=== PATIENT | female | born 1950 | race Caucasian/White ===

== ENCOUNTER 2017-09-30 22:04 | Emergency (ER) | payer MEDICARE, MEDICAID ==
[~2017-09-30 22:04] MED LIST: Adenosine 6 MG/2 ML SDV IVPUSH ONE
[2017-09-30] MEDS ORDERED: Sodium Chloride 0.9% 1,000 ML IV ONE (22:20)
[2017-09-30 22:23] VITALS: BP 116/66
[2017-09-30] MEDS ORDERED: Aspirin 81 MG Tab.Chew PO ONE (22:38)
[2017-09-30] MEDS ORDERED: Metoprolol Tartrate 5 MG/5 ML SDV IVPUSH ONE (23:09)
[2017-09-30] MEDS ORDERED: Heparin Sodium/D5W 25,000 UNITS/500 ML BAG IV ONE (23:46)
[2017-09-30] MEDS ORDERED: Heparin Sodium 5,000 Units/ML Vial IVPUSH ONE (23:46)
--- NOTE | 2017-10-02 02:31 | EDM.PDOC ---
ED HPI GENERAL MEDICAL PROBLEM - General Chief Complaint: Cardiovascular Problem Stated Complaint: CAME BY AMBULANCE Time Seen by Provider: 09/30/17 22:15 Source of Information: Reports: Patient, EMS History Limitations: Reports: No Limitations - History of Present Illness INITIAL COMMENTS - FREE TEXT/NARRATIVE: ED via [facility] with initial report of syncope. Patient reported feeling warm and lightheaded then woke up on floor. Noted similar episode day prior after lifting bag of soil with SOB. C/O feeling weak at present, SOB with minimal movement. EMS note SVT on monitor on arrival. Unable to access IV Onset: Today - Related Data Allergies Allergy/AdvReac Type Severity Reaction Status Date / Time adhesive tape Allergy Itching Verified 09/30/17 23:02 alendronate sodium Allergy Difficulty Verified 09/30/17 23:03 [From Fosamax] Swallowing bacitracin Allergy Itching Verified 09/30/17 23:02 mupirocin [From Bactroban] Allergy Rash Verified 09/30/17 23:02 mupirocin calcium Allergy Rash Verified 09/30/17 23:02 [From Bactroban] Home Meds: Home Meds Glucosamine/Chondroitin Sulf A [Glucosamine Chondroitin Cap] 1 tab PO BID [History] Hydroxychloroquine [Plaquenil] 200 mg PO BID 12/05/15 [History] Multivitamin [Daily Multiple Vitamin] 1 tab PO DAILY 12/05/15 [History] Omeprazole [Prilosec] 20 mg PO DAILY 12/05/15 [History] traMADol HCl [Ultram] 100 mg PO TID 12/05/15 [History] Calcium Carbonate/Vitamin D3 [Calcium Carbonate/Vitamin D 1250 MG-200 Unit] 1 tab PO BID 04/05/16 [History] Ferrous Sulfate 325 mg PO DAILY 04/05/16 [History] Furosemide [Lasix] 40 mg PO DAILY 04/05/16 [History] Spironolactone [Aldactone] 25 mg PO DAILY 04/05/16 [History] Fosinopril [Monopril] 10 mg PO DAILY #14 tablet 04/30/16 [Rx] Metoprolol Tartrate [Lopressor] 50 mg PO Q12HR 09/30/17 [History] Past Medical History HEENT History: Reports: None Cardiovascular History: Reports: Heart Murmur, Hypertension, Other (See Below) Other Cardiovascular History: rapid heart rate Respiratory History: Reports: Asthma Gastrointestinal History: Reports: GERD Genitourinary History: Reports: None PRODUCT SUPPORT ENGINEER History: Reports: None Musculoskeletal History: Reports: Osteoarthritis, RA Neurological History: Reports: None Psychiatric History: Reports: None Endocrine/Metabolic History: Reports: None Hematologic History: Reports: Anemia Immunologic History: Reports: None Oncologic (Cancer) History: Reports: None Dermatologic History: Reports: Psoriasis - Infectious Disease History Infectious Disease History: Reports: Chicken Pox, Measles, Rubella Other Infectious Disease History: pt unsure of all childhood illnesses. - Past Surgical History Head Surgeries/Procedures: Reports: None Respiratory Surgical History: Reports: None GI Surgical History: Reports: Appendectomy, Colonoscopy Female Surgical History: Reports: Tubal Ligation Musculoskeletal Surgical History: Reports: None Social & Family History - Family History Family Medical History: Unobtainable - Tobacco Use Smoking Status *Q: Never Smoker Second Hand Smoke Exposure: No - Recreational Drug Use Recreational Drug Use: No ED ROS GENERAL - Review of Systems Review Of Systems: See Below Constitutional: Reports: Fatigue HEENT: Reports: No Symptoms Respiratory: Reports: Shortness of Breath Cardiovascular: Reports: No Symptoms. Denies: Chest Pain GI/Abdominal: Reports: No Symptoms Musculoskeletal: Reports: Joint Pain (right hip with palpation, no change from chronic pain) Neurological: Reports: No Symptoms, Syncope. Denies: Headache, Trouble Speaking Psychiatric: Reports: No Symptoms Immunologic: Reports: No Symptoms ED EXAM, GENERAL - Physical Exam Exam: See Below Exam Limited By: No Limitations General Appearance: Alert, Mild Distress Eye Exam: Bilateral Eye: PERRL Ears: Normal External Exam, Normal TMs Nose: Normal Inspection Throat/Mouth: Normal Inspection, Normal Voice Head: Atraumatic, Normocephalic Neck: Normal Inspection, Non-Tender, Full Range of Motion. No: Lymphadenopathy (L), Lymphadenopathy (R) Respiratory/Chest: Decreased Breath Sounds Cardiovascular: Tachycardia, Other. No: Normal Peripheral Pulses GI/Abdominal: Normal Bowel Sounds, Soft Back Exam: Normal Inspection Extremities: Normal Inspection, Other (tnder right hip with palpation, patient reports, no change from chronic pain) Neurological: Alert, Oriented, Normal Cognition, Normal Reflexes, No Motor/ Sensory Deficits Psychiatric: Normal Affect Skin Exam: Warm, Dry, Cool, Pallor Course - Vital Signs Last Recorded V/S: Last Vital Signs Temp 97.2 F 09/30/17 22:15 Pulse 115 H 09/30/17 22:15 Resp 18 09/30/17 22:15 BP 116/66 09/30/17 22:15 Pulse Ox 100 09/30/17 22:15 - Orders/Labs/Meds Labs: Laboratory Tests 09/30/17 09/30/17 09/30/17 Range/Units 22:10 22:10 22:10 WBC 14.8 H (5.0-10.0) 10^3/uL RBC 4.06 L (4.2-5.4) 10^6/uL Hgb 12.5 D (12.0-16.0) g/dL Hct 40.0 (37.0-47.0) % MCV 98.5 D (80-100) fL MCH 30.8 (27.0-34.0) pg MCHC 31.3 L (33.0-35.0) g/dL Plt Count 312 D (150-450) 10^3/uL Neut % (Auto) 85.4 H (42.2-75.2) % Lymph % (Auto) 7.2 L (20.5-50.1) % [place] % (Auto) 5.9 (2-8) % Eos % (Auto) 1.2 (1.0-3.0) % Baso % (Auto) 0.3 (0.0-1.0) % D-Dimer, Quantitative (0-400) ng/mL Sodium 137 (135-145) mmol/L Potassium 4.3 (3.6-5.0) mmol/L Chloride 100 L (101-111) mmol/L Carbon Dioxide 29.0 (21.0-31.0) mmol/L Anion Gap 12.3 BUN 24 H (7-18) mg/dL Creatinine 1.3 (0.6-1.3) mg/dL Est Cr Clr Drug Dosing 41.40 mL/min Estimated GFR (MDRD) 41 BUN/Creatinine Ratio 18.46 Glucose 184 H (74-105) mg/dL Lactic Acid (0.5-2.2) mmol/L Calcium 9.2 (8.4-10.2) mg/dl Total Bilirubin 0.3 (0.2-1.0) mg/dL AST 53 H (10-42) IU/L ALT 37 (10-60) IU/L Alkaline Phosphatase 90 (42-121) IU/L CK-MB (CK-2) 2.00 (0.4-4.7) ng/mL Troponin I 0.03 H* (0.00-0.02) ng/ml B-Natriuretic Peptide (0-100) pg/ml Total Protein 8.0 (6.7-8.2) g/dl Albumin 3.6 (3.2-5.5) g/dl Globulin 4.4 Albumin/Globulin Ratio 0.82 Amylase 40 (28-100) U/L Lipase 15 L (22-51) U/L Urine Color (YELLOW) Urine Appearance (CLEAR) Urine pH (5.0-9.0) Ur Specific [place] (1.005-1.030) Urine Protein (NEGATIVE) Urine Glucose (UA) (NEGATIVE) Urine Ketones (NEGATIVE) mg/dL Urine Occult Blood (NEGATIVE) Urine Nitrite (NEGATIVE) Urine Bilirubin (NEGATIVE) Urine Urobilinogen (0.2-1.0) mg/dL Ur Leukocyte Esterase (NEGATIVE) Urine RBC /HPF Urine WBC (0-5/HPF) /HPF Ur Epithelial Cells /HPF Amorphous Sediment (0/HPF) /HPF Urine Bacteria (0-FEW/HPF) /HPF 09/30/17 09/30/17 09/30/17 Range/Units 22:10 22:10 23:05 WBC (5.0-10.0) 10^3/uL RBC (4.2-5.4) 10^6/uL Hgb (12.0-16.0) g/dL Hct (37.0-47.0) % MCV (80-100) fL MCH (27.0-34.0) pg MCHC (33.0-35.0) g/dL Plt Count (150-450) 10^3/uL Neut % (Auto) (42.2-75.2) % Lymph % (Auto) (20.5-50.1) % [place] % (Auto) (2-8) % Eos % (Auto) (1.0-3.0) % Baso % (Auto) (0.0-1.0) % D-Dimer, Quantitative 1710 H (0-400) ng/mL Sodium (135-145) mmol/L Potassium (3.6-5.0) mmol/L Chloride (101-111) mmol/L Carbon Dioxide (21.0-31.0) mmol/L Anion Gap BUN (7-18) mg/dL Creatinine (0.6-1.3) mg/dL Est Cr Clr Drug Dosing mL/min Estimated GFR (MDRD) BUN/Creatinine Ratio Glucose (74-105) mg/dL Lactic Acid 1.4 (0.5-2.2) mmol/L Calcium (8.4-10.2) mg/dl Total Bilirubin (0.2-1.0) mg/dL AST (10-42) IU/L ALT (10-60) IU/L Alkaline Phosphatase (42-121) IU/L CK-MB (CK-2) (0.4-4.7) ng/mL Troponin I (0.00-0.02) ng/ml B-Natriuretic Peptide 706 H (0-100) pg/ml Total Protein (6.7-8.2) g/dl Albumin (3.2-5.5) g/dl Globulin Albumin/Globulin Ratio Amylase (28-100) U/L Lipase (22-51) U/L Urine Color (YELLOW) Urine Appearance (CLEAR) Urine pH (5.0-9.0) Ur Specific [place] (1.005-1.030) Urine Protein (NEGATIVE) Urine Glucose (UA) (NEGATIVE) Urine Ketones (NEGATIVE) mg/dL Urine Occult Blood (NEGATIVE) Urine Nitrite (NEGATIVE) Urine Bilirubin (NEGATIVE) Urine Urobilinogen (0.2-1.0) mg/dL Ur Leukocyte Esterase (NEGATIVE) Urine RBC /HPF Urine WBC (0-5/HPF) /HPF Ur Epithelial Cells /HPF Amorphous Sediment (0/HPF) /HPF Urine Bacteria (0-FEW/HPF) /HPF 09/30/17 Range/Units 23:33 WBC (5.0-10.0) 10^3/uL RBC (4.2-5.4) 10^6/uL Hgb (12.0-16.0) g/dL Hct (37.0-47.0) % MCV (80-100) fL MCH (27.0-34.0) pg MCHC (33.0-35.0) g/dL Plt Count (150-450) 10^3/uL Neut % (Auto) (42.2-75.2) % Lymph % (Auto) (20.5-50.1) % [place] % (Auto) (2-8) % Eos % (Auto) (1.0-3.0) % Baso % (Auto) (0.0-1.0) % D-Dimer, Quantitative (0-400) ng/mL Sodium (135-145) mmol/L Potassium (3.6-5.0) mmol/L Chloride (101-111) mmol/L Carbon Dioxide (21.0-31.0) mmol/L Anion Gap BUN (7-18) mg/dL Creatinine (0.6-1.3) mg/dL Est Cr Clr Drug Dosing mL/min Estimated GFR (MDRD) BUN/Creatinine Ratio Glucose (74-105) mg/dL Lactic Acid (0.5-2.2) mmol/L Calcium (8.4-10.2) mg/dl Total Bilirubin (0.2-1.0) mg/dL AST (10-42) IU/L ALT (10-60) IU/L Alkaline Phosphatase (42-121) IU/L CK-MB (CK-2) (0.4-4.7) ng/mL Troponin I (0.00-0.02) ng/ml B-Natriuretic Peptide (0-100) pg/ml Total Protein (6.7-8.2) g/dl Albumin (3.2-5.5) g/dl Globulin Albumin/Globulin Ratio Amylase (28-100) U/L Lipase (22-51) U/L Urine Color Yellow (YELLOW) Urine Appearance Slightly cloudy (CLEAR) Urine pH 7.0 (5.0-9.0) Ur Specific [place] >= 1.030 (1.005-1.030) Urine Protein 30 H (NEGATIVE) Urine Glucose (UA) Negative (NEGATIVE) Urine Ketones Negative (NEGATIVE) mg/dL Urine Occult Blood Negative (NEGATIVE) Urine Nitrite Negative (NEGATIVE) Urine Bilirubin Negative (NEGATIVE) Urine Urobilinogen 0.2 (0.2-1.0) mg/dL Ur Leukocyte Esterase Negative (NEGATIVE) Urine RBC 0-5 /HPF Urine WBC 0-5 (0-5/HPF) /HPF Ur Epithelial Cells Rare /HPF Amorphous Sediment Few (0/HPF) /HPF Urine Bacteria Rare (0-FEW/HPF) /HPF Meds: Medications Discontinued Medications Generic Name Dose Route Start Last Admin Trade Name Suri PRN Reason Stop Dose Admin Adenosine 6 mg 09/30/17 21:55 10/01/17 00:01 Adenocard IVPUSH 09/30/17 21:56 Not Given NOW ONE Aspirin 324 mg 09/30/17 22:38 09/30/17 22:53 Aspirin PO 09/30/17 22:39 324 mg ONETIME ONE Administration Heparin Sodium (Porcine) 5,000 units 09/30/17 23:46 09/30/17 23:59 Heparin Sodium IVPUSH 09/30/17 23:47 5,000 units ONETIME ONE Administration Sodium Chloride 1,000 mls @ 50 mls/hr 09/30/17 22:20 09/30/17 22:33 Normal Saline IV 10/01/17 18:19 50 mls/hr .BOLUS ONE Administration Heparin Sodium/Dextrose 25,000 units in 500 mls @ 0 mls/hr 09/30/17 23:46 00:08 Heparin 25,000 Units In D5w 500 Ml IV 09/30/17 23:47 17.96 units/kg/hr ONETIME ONE 31.3 mls/hr Protocol Administration 18 UNITS/KG/HR Metoprolol Tartrate 2.5 mg 09/30/17 23:09 10/01/17 01:13 Lopressor IVPUSH 09/30/17 23:10 Not Given ONETIME ONE - Re-Assessments/Exams Free Text/Narrative Re-Assessment/Exam: HR 110- 120's at rest, minimal movement increase up to 200. SOB with movment, minimal at rest. Dr. Cantu accepting of patient for further eval and management. Ddimer elevated. Heparin initiated. Metoprolol for rate control Tx via [facility] 10/02/17 03:30 Departure - Departure Time of Disposition: 00:30 Disposition: DC/Tfer to Acute Hospital 02 Reason for Transfer *Q: Other Condition: Undetermined Clinical Impression: Positive D-dimer, SVT (supraventricular tachycardia) Syncope Qualifiers: Syncope type: unspecified Qualified Code(s): R55 - Syncope and collapse Fall in home Qualifiers: Encounter type: initial encounter Qualified Code(s): W19.XXXA - Unspecified fall, initial encounter; Y92.099 - Unspecified place in other non-institutional residence as the place of occurrence of the external cause; Y92.099 - Unspecified place in other non-institutional residence as the place of occurrence of the external cause Rheumatoid arthritis Qualifiers: Rheumatoid arthritis location: unspecified site Rheumatoid factor presence: unspecified presence Qualified Code(s): M06.9 - Rheumatoid arthritis, unspecified Referrals: PCP,None [Primary Care Provider] - Forms: ED Department Discharge
--- NOTE | 2017-10-02 19:00 | EKG ---
09/30/2017 - RIZWANA HERMAN - FINDINGS: I reviewed the EKG and agree with the machine's reading ventricular tachycardia. [facility] /[id number]
== END 2017-10-01 00:32 ==
LOC: DL.ED 22:04
DX: I47.1 Supraventricular tachycardia (principal); R55 Syncope and collapse; M06.9 Rheumatoid arthritis, unspecified; I10 Essential (primary) hypertension; Z88.8 Allergy status to other drugs, medicaments and biological substances; Z79.899 Other long term (current) drug therapy; W19.XXXA Unspecified fall, initial encounter; Y92.099 Unspecified place in other non-institutional residence as the place of occurrence of the external cause; R06.02 Shortness of breath
CPT/HCPCS: 36415; 71010; 72170; 80053; 81001; 82150; 82553; 83605; 83690; 83880; 84484; 85025; 85379; 87040; 93005; 93010; 96361; 96374; 96376; 99285; A9270; J1644; J7030

== ENCOUNTER 2017-11-26 11:43 | Emergency (ER) | payer MEDICARE, MEDICAID ==
[2017-11-26 12:05] VITALS: BP 129/98
--- NOTE | 2017-11-26 12:33 | EDM.PDOC ---
ED HPI GENERAL MEDICAL PROBLEM - General Chief Complaint: Respiratory Problem Stated Complaint: RATTELING IN CHEST Time Seen by Provider: 11/26/17 12:15 Source of Information: Reports: Patient History Limitations: Reports: No Limitations - History of Present Illness INITIAL COMMENTS - FREE TEXT/NARRATIVE: This 67 yo female patient reports to the ED due to noticing a "rattle" in her chest that started last night. The patient reports she has been coughing up some clear fluids intermittently. The patient denies any fevers. The patient reports she was seen in [facility] about 1 month ago for a cardioversion. During her stay in the hospital, the patient reports that she did have a pneumonia which was treated with antibiotics. The patient has not been seen by her primary care facility due to it taking it too long. Onset Date: 11/25/17 Duration: Intermittent Location: Reports: Chest Severity: Mild Improves with: Reports: Other (deep breathing) Associated Symptoms: Reports: No Other Symptoms - Related Data Allergies Allergy/AdvReac Type Severity Reaction Status Date / Time adhesive tape Allergy Itching Verified 09/30/17 23:02 alendronate sodium Allergy Difficulty Verified 09/30/17 23:03 [From Fosamax] Swallowing bacitracin Allergy Itching Verified 09/30/17 23:02 mupirocin [From Bactroban] Allergy Rash Verified 09/30/17 23:02 mupirocin calcium Allergy Rash Verified 09/30/17 23:02 [From Bactroban] Home Meds: Home Meds Glucosamine/Chondroitin Sulf A [Glucosamine Chondroitin Cap] 1 tab PO BID [History] Hydroxychloroquine [Plaquenil] 200 mg PO BID 12/05/15 [History] Multivitamin [Daily Multiple Vitamin] 1 tab PO DAILY 12/05/15 [History] Omeprazole [Prilosec] 20 mg PO DAILY 12/05/15 [History] traMADol HCl [Ultram] 100 mg PO TID 12/05/15 [History] Calcium Carbonate/Vitamin D3 [Calcium Carbonate/Vitamin D 1250 MG-200 Unit] 1 tab PO BID 04/05/16 [History] Ferrous Sulfate 325 mg PO DAILY 04/05/16 [History] Furosemide [Lasix] 40 mg PO DAILY 04/05/16 [History] Spironolactone [Aldactone] 25 mg PO DAILY 04/05/16 [History] Apixaban [Eliquis] 5 mg PO BID 11/26/17 [History] Fosinopril [Monopril] 0.5 mg PO DAILY 11/26/17 [History] Metoprolol Succinate 75 mg PO DAILY 11/26/17 [History] Past Medical History HEENT History: Reports: None Cardiovascular History: Reports: Heart Murmur, Hypertension, Pacemaker Respiratory History: Reports: Asthma Gastrointestinal History: Reports: GERD Genitourinary History: Reports: None NETWORK SYSTEMS ENGINEER History: Reports: None Musculoskeletal History: Reports: Osteoarthritis, RA Neurological History: Reports: None Psychiatric History: Reports: None Endocrine/Metabolic History: Reports: None Hematologic History: Reports: Anemia Immunologic History: Reports: None Oncologic (Cancer) History: Reports: None Dermatologic History: Reports: Psoriasis - Infectious Disease History Infectious Disease History: Reports: Chicken Pox, Measles, Rubella Other Infectious Disease History: pt unsure of all childhood illnesses. - Past Surgical History Head Surgeries/Procedures: Reports: None Respiratory Surgical History: Reports: None GI Surgical History: Reports: Appendectomy, Colonoscopy Musculoskeletal Surgical History: Reports: None Social & Family History - Family History Family Medical History: Unobtainable - Tobacco Use Smoking Status *Q: Never Smoker Second Hand Smoke Exposure: No - Recreational Drug Use Recreational Drug Use: No ED ROS GENERAL - Review of Systems Review Of Systems: ROS reveals no pertinent complaints other than HPI. ED EXAM, GENERAL - Physical Exam Exam: See Below Exam Limited By: No Limitations General Appearance: Alert, WD/WN, Anxious, Mild Distress Eye Exam: Bilateral Eye: EOMI, Normal Inspection, PERRL Ears: Normal External Exam, Normal Canal, Hearing Grossly Normal, Normal TMs Nose: Normal Inspection, Normal Mucosa, No Blood Throat/Mouth: Normal Inspection, Normal Lips, Normal Teeth, Normal Gums, Normal Oropharynx, Normal Voice, No Airway Compromise Head: Atraumatic, Normocephalic Neck: Normal Inspection, Supple, Non-Tender, Full Range of Motion Respiratory/Chest: No Respiratory Distress, Lungs Clear, Normal Breath Sounds, No Accessory Muscle Use, Chest Non-Tender Cardiovascular: Normal Peripheral Pulses, Regular Rate, Rhythm, No Edema, No Gallop, No JVD, No Murmur, No Rub GI/Abdominal: Normal Bowel Sounds, Soft, Non-Tender, No Organomegaly, No Distention, No Abnormal Bruit, No Mass (Female) Exam: Deferred Rectal (Female) Exam: Deferred Back Exam: Normal Inspection, Full Range of Motion, NT Extremities: Normal Inspection, Normal Range of Motion, Non-Tender, Normal Capillary Refill, No Pedal Edema Neurological: Alert, Oriented, CN II-XII Intact, Normal Cognition, Normal Gait, Normal Reflexes, No Motor/Sensory Deficits Psychiatric: Normal Affect, Normal Mood Skin Exam: Warm, Dry, Intact, Normal Color, No Rash Lymphatic: No Adenopathy Course - Vital Signs Last Recorded V/S: Last Vital Signs Temp 37.1 C 11/26/17 12:02 Pulse 71 11/26/17 12:02 Resp 14 11/26/17 12:02 BP 129/98 H 11/26/17 12:02 Pulse Ox 100 11/26/17 12:02 - Orders/Labs/Meds Orders: Active Orders 24 hr Category Date Time Status COMPREHENSIVE METABOLIC PN,CMP [CHEM] Urgent Lab 11/26/17 12:26 Received Labs: Laboratory Tests 11/26/17 Range/Units 12:26 WBC 8.0 (5.0-10.0) 10^3/uL RBC 4.07 L (4.2-5.4) 10^6/uL Hgb 12.4 (12.0-16.0) g/dL Hct 38.5 (37.0-47.0) % MCV 94.6 D (80-100) fL MCH 30.5 (27.0-34.0) pg MCHC 32.2 L (33.0-35.0) g/dL Plt Count 305 (150-450) 10^3/uL Neut % (Auto) 79.6 H (42.2-75.2) % Lymph % (Auto) 11.0 L (20.5-50.1) % [place] % (Auto) 6.9 (2-8) % Eos % (Auto) 2.0 (1.0-3.0) % Baso % (Auto) 0.5 (0.0-1.0) % Departure - Departure Time of Disposition: 12:47 Disposition: Home, Self-Care 01 Condition: Fair Clinical Impression: Viral upper respiratory illness - Discharge Information Instructions: Viral Respiratory Infection, [id number] Forms: ED Department Discharge Care Plan Goals: The patient was advised of the examination, lab and x-ray results during the visit. The patient was encouraged to continue to monitor her symptoms. If the patient has any worsening of her conditions or additional symptoms, the patient should follow-up with her primary care facility or return to the emergency department. - My Orders Last 24 Hours: My Active Orders 11/26/17 12:26 COMPREHENSIVE METABOLIC PN,CMP [CHEM] Urgent - Assessment/Plan Last 24 Hours: My Active Orders 11/26/17 12:26 COMPREHENSIVE METABOLIC PN,CMP [CHEM] Urgent
--- NOTE | 2017-11-26 12:42 | CR ---
Clinical history: 67-year-old female complaining of "rattling" in chest. "Normal" AP chest x-ray repo rted 30 September 2017. Interpretation: Heart size today is normal (new pacemaker with leads intact since 30 September 2017 ex am) and no current signs of alveolar edema or dependent pleural effusion. Compression fractures (old) T12 and L2 vertebral bodies. No new lung mass, hilar lymphadenopathy or focal lobar pneumonia. No atelectasis/collapse. No pneumot horax. CONCLUSION: No acute cardiopulmonary abnormality. Specifically, no signs of heart failure or lobar pn eumonia.
== END 2017-11-26 12:58 | disposition home or self-care (01) ==
LOC: DL.ED 11:43
DX: J06.9 Acute upper respiratory infection, unspecified (principal); I10 Essential (primary) hypertension; Z88.8 Allergy status to other drugs, medicaments and biological substances; Z79.899 Other long term (current) drug therapy
CPT/HCPCS: 36415; 71046; 80053; 85025; 99282; 99284

== ENCOUNTER 2018-11-06 23:50 | Emergency (ER) | payer MEDICARE, MEDICAID ==
[2018-11-07 00:15] VITALS: BP 141/61
--- NOTE | 2018-11-07 00:42 | EDM.PDOC ---
ED HPI GENERAL MEDICAL PROBLEM - General Chief Complaint: Cardiovascular Problem Stated Complaint: AMBULANCE / CARDIOVASCULAR Time Seen by Provider: 11/07/18 00:40 Source of Information: Reports: Patient History Limitations: Reports: No Limitations - History of Present Illness INITIAL COMMENTS - FREE TEXT/NARRATIVE: c/o sweating tonight and feeling cold and weak. but now feels better. - Related Data Allergies Allergy/AdvReac Type Severity Reaction Status Date / Time adhesive tape Allergy Itching Verified 11/07/18 00:11 alendronate sodium Allergy Difficulty Verified 11/07/18 00:11 [From Fosamax] Swallowing bacitracin Allergy Itching Verified 11/07/18 00:11 mupirocin [From Bactroban] Allergy Rash Verified 11/07/18 00:11 mupirocin calcium Allergy Rash Verified 11/07/18 00:11 [From Bactroban] Home Meds: Home Meds Glucosamine/Chondroitin Sulf A [Glucosamine Chondroitin Cap] 1 tab PO BID [History] Hydroxychloroquine [Plaquenil] 200 mg PO BID 12/05/15 [History] Multivitamin [Daily Multiple Vitamin] 1 tab PO DAILY 12/05/15 [History] traMADol HCl [Ultram] 100 mg PO TID 12/05/15 [History] Calcium Carbonate/Vitamin D3 [Calcium Carbonate/Vitamin D 1250 MG-200 Unit] 1 tab PO BID 04/05/16 [History] Ferrous Sulfate 325 mg PO DAILY 04/05/16 [History] Furosemide [Lasix] 40 mg PO DAILY 04/05/16 [History] Spironolactone [Aldactone] 25 mg PO DAILY 04/05/16 [History] Apixaban [Eliquis] 5 mg PO BID 11/26/17 [History] Fosinopril [Monopril] 0.5 mg PO DAILY 11/26/17 [History] Metoprolol Succinate 75 mg PO DAILY 11/26/17 [History] Pantoprazole Sodium [Protonix] 20 mg PO DAILY 11/07/18 [History] Past Medical History HEENT History: Reports: None Cardiovascular History: Reports: Heart Murmur, Hypertension, Pacemaker Other Cardiovascular History: rapid heart rate Respiratory History: Reports: Asthma Gastrointestinal History: Reports: GERD Genitourinary History: Reports: None WARE CLEANER History: Reports: None Musculoskeletal History: Reports: Osteoarthritis, RA Neurological History: Reports: None Psychiatric History: Reports: None Endocrine/Metabolic History: Reports: None Hematologic History: Reports: Anemia Immunologic History: Reports: None Oncologic (Cancer) History: Reports: None Dermatologic History: Reports: Psoriasis - Infectious Disease History Infectious Disease History: Reports: Chicken Pox, Measles, Rubella Other Infectious Disease History: pt unsure of all childhood illnesses. - Past Surgical History Head Surgeries/Procedures: Reports: None Respiratory Surgical History: Reports: None GI Surgical History: Reports: Appendectomy, Colonoscopy Musculoskeletal Surgical History: Reports: None Social & Family History - Family History Family Medical History: Noncontributory - Tobacco Use Smoking Status *Q: Unknown Ever Smoked - Caffeine Use Caffeine Use: Reports: None - Recreational Drug Use Recreational Drug Use: No ED ROS GENERAL - Review of Systems Review Of Systems: ROS reveals no pertinent complaints other than HPI. ED EXAM, GENERAL - Physical Exam Exam: See Below Exam Limited By: No Limitations General Appearance: Alert, WD/WN, No Apparent Distress Ears: Hearing Grossly Normal Throat/Mouth: Normal Voice, No Airway Compromise Head: Atraumatic Neck: Non-Tender, Full Range of Motion Respiratory/Chest: No Respiratory Distress, Rhonchi Cardiovascular: Irregularly Irregular GI/Abdominal: Soft, Non-Tender Neurological: Alert, Oriented, Normal Cognition, No Motor/Sensory Deficits Psychiatric: Flat Affect Skin Exam: Warm, Dry, Normal Color Lymphatic: No Adenopathy Course - Vital Signs Last Recorded V/S: Last Vital Signs Temp 35.9 C 11/07/18 00:12 Pulse 77 11/07/18 00:12 Resp 18 11/07/18 00:12 BP 141/61 H 11/07/18 00:12 Pulse Ox 100 11/07/18 00:12 - Orders/Labs/Meds Orders: Active Orders 24 hr Category Date Time Status EKG Documentation Completion [RC] URGENT Care 11/07/18 00:05 Active LACTIC ACID [CHEM] Stat Lab 11/07/18 00:35 Ordered Labs: Laboratory Tests 11/07/18 11/07/18 11/07/18 Range/Units 00:25 00:25 00:25 WBC 12.8 H (5.0-10.0) 10^3/uL RBC 4.04 L (4.2-5.4) 10^6/uL Hgb 12.4 (12.0-16.0) g/dL Hct 39.2 (37.0-47.0) % MCV 97.0 (80-100) fL MCH 30.7 (27.0-34.0) pg MCHC 31.6 L (33.0-35.0) g/dL Plt Count 277 (150-450) 10^3/uL Neut % (Auto) 80.8 H (42.2-75.2) % Lymph % (Auto) 9.5 L (20.5-50.1) % [place] % (Auto) 8.1 H (2-8) % Eos % (Auto) 1.3 (1.0-3.0) % Baso % (Auto) 0.3 (0.0-1.0) % Sodium 137 (135-145) mmol/L Potassium 3.9 (3.6-5.0) mmol/L Chloride 98 L (101-111) mmol/L Carbon Dioxide 27.0 (21.0-31.0) mmol/L Anion Gap 15.9 BUN 40 H (7-18) mg/dL Creatinine 1.5 H (0.6-1.3) mg/dL Est Cr Clr Drug Dosing 31.43 mL/min Estimated GFR (MDRD) 35 BUN/Creatinine Ratio 26.66 Glucose 78 (74-105) mg/dL Calcium 8.9 (8.4-10.2) mg/dl Total Bilirubin 0.6 (0.2-1.0) mg/dL AST 35 (10-42) IU/L ALT 29 (10-60) IU/L Alkaline Phosphatase 88 (42-121) IU/L Troponin I 0.03 H* (0.00-0.02) ng/ml B-Natriuretic Peptide 150 H (0-100) pg/ml Total Protein 8.7 H (6.7-8.2) g/dl Albumin 3.9 (3.2-5.5) g/dl Globulin 4.8 Albumin/Globulin Ratio 0.81 - Re-Assessments/Exams Free Text/Narrative Re-Assessment/Exam: 11/07/18 02:[address] carrasco who felt pt will be better Tx @ [facility]. Dr Perera @ kindly accepted pt. Departure - Departure Time of Disposition: 02:09 Disposition: DC/Tfer to Acute Hospital 02 Reason for Transfer *Q: Other Condition: Fair Clinical Impression: Dehydration syndrome, Elevated troponin I level, Flu syndrome Forms: Interfacility Transfer EMTALA - My Orders Last 24 Hours: My Active Orders 11/07/18 00:05 EKG Documentation Completion [RC] URGENT 11/07/18 00:35 LACTIC ACID [CHEM] Stat - Assessment/Plan Last 24 Hours: My Active Orders 11/07/18 00:05 EKG Documentation Completion [RC] URGENT 11/07/18 00:35 LACTIC ACID [CHEM] Stat
[2018-11-07 00:53] LABS: ANION GAP 15.9
== END 2018-11-07 03:25 ==
LOC: DL.ED 23:50
DX: J11.1 Influenza due to unidentified influenza virus with other respiratory manifestations (principal); E86.0 Dehydration; R79.89 Other specified abnormal findings of blood chemistry
CPT/HCPCS: 36415; 71045; 80053; 81001; 83880; 84484; 85025; 87086; 87088; 87186; 93005; 99285

== ENCOUNTER 2020-01-18 05:58 | Emergency (ER) | payer MEDICARE, MEDICAID ==
[2020-01-18 06:06] VITALS: BP 138/52; PULSE 84
--- NOTE | 2020-01-18 06:50 | EDM.PDOC ---
<ZoeyRena Stanford - Last Filed: 01/18/20 06:55> ED HPI GENERAL MEDICAL PROBLEM - General Chief Complaint: General Stated Complaint: AMBULANCE Time Seen by Provider: 01/18/20 06:25 Source of Information: Reports: Patient History Limitations: Reports: No Limitations - History of Present Illness INITIAL COMMENTS - FREE TEXT/NARRATIVE: ED via [facility] iwth c/o 2 episodes of cold sweats then urge to "pee" Stated similar feeling before pacemaker put in 3 years ago. Denied chest pain, No SOB, No known fever.No nausea or vomiting. No sx at present. Recent cellulitis lower legs, off antibiotic x 3 days Hx rheumatoid arthritis, not currently on meds for RA, Plaquinal stopped one year ago due affecting vision. RA in remission at that time and not given any other alternative medications. Scheduled to see per diem clerk nex month. - Related Data Allergies Allergy/AdvReac Type Severity Reaction Status Date / Time adhesive tape Allergy Itching Verified 01/18/20 06:13 alendronate sodium Allergy Difficulty Verified 01/18/20 06:13 [From Fosamax] Swallowing bacitracin Allergy Itching Verified 01/18/20 06:13 mupirocin [From Bactroban] Allergy Rash Verified 01/18/20 06:13 mupirocin calcium Allergy Rash Verified 01/18/20 06:13 [From Bactroban] Home Meds: Home Meds Glucosamine/Chondroitin Sulf A [Glucosamine Chondroitin Cap] 1 tab PO BID [History] Multivitamin [Daily Multiple Vitamin] 1 tab PO DAILY 12/05/15 [History] traMADol HCl [Ultram] 100 mg PO TID 12/05/15 [History] Calcium Carbonate/Vitamin D3 [Calcium Carbonate/Vitamin D 1250 MG-200 Unit] 1 tab PO DAILY 04/05/16 [History] Ferrous Sulfate 325 mg PO ASDIRECTED 04/05/16 [History] Furosemide [Lasix] 80 mg PO DAILY 04/05/16 [History] Spironolactone [Aldactone] 25 mg PO DAILY 04/05/16 [History] Apixaban [Eliquis] 5 mg PO BID 11/26/17 [History] Fosinopril [Monopril] 0.5 mg PO DAILY 11/26/17 [History] Metoprolol Succinate 75 mg PO ASDIRECTED 11/26/17 [History] Past Medical History HEENT History: Reports: None Cardiovascular History: Reports: Heart Murmur, Hypertension, Pacemaker Other Cardiovascular History: rapid heart rate Respiratory History: Reports: Asthma Gastrointestinal History: Reports: GERD Genitourinary History: Reports: None CONTROL SYSTEM MANAGER History: Reports: None Musculoskeletal History: Reports: Fracture, Osteoarthritis, RA Neurological History: Reports: None Psychiatric History: Reports: None Endocrine/Metabolic History: Reports: None Hematologic History: Reports: Anemia Immunologic History: Reports: None Oncologic (Cancer) History: Reports: None Dermatologic History: Reports: Psoriasis - Infectious Disease History Infectious Disease History: Reports: Chicken Pox, Measles, Rubella Other Infectious Disease History: pt unsure of all childhood illnesses. - Past Surgical History Head Surgeries/Procedures: Reports: None Respiratory Surgical History: Reports: None GI Surgical History: Reports: Appendectomy, Colonoscopy Musculoskeletal Surgical History: Reports: None, Hip Replacement Social & Family History - Family History Family Medical History: Noncontributory - Tobacco Use Smoking Status *Q: Never Smoker Second Hand Smoke Exposure: No - Caffeine Use Caffeine Use: Reports: None - Recreational Drug Use Recreational Drug Use: No ED ROS GENERAL - Review of Systems Review Of Systems: Comprehensive ROS is negative, except as noted in HPI. ED EXAM, GENERAL - Physical Exam Exam: See Below Exam Limited By: No Limitations General Appearance: Alert, No Apparent Distress, Obese Eye Exam: Bilateral Eye: EOMI, PERRL Ears: Normal External Exam Nose: Normal Inspection Throat/Mouth: Normal Inspection, Normal Voice Head: Atraumatic, Normocephalic Neck: Normal Inspection, Supple, Full Range of Motion Respiratory/Chest: No Respiratory Distress, Lungs Clear, Normal Breath Sounds Cardiovascular: Normal Peripheral Pulses, Regular Rate, Rhythm GI/Abdominal: Normal Bowel Sounds, Soft, Non-Tender Extremities: Pedal Edema, Other (right shoulder ) Neurological: Alert, Oriented Skin Exam: Warm, Dry, Intact, Normal Color Course - Vital Signs Last Recorded V/S: Last Vital Signs Temp 36.1 C 01/18/20 05:58 Pulse 84 01/18/20 05:58 Resp 18 01/18/20 05:58 BP 138/52 L 01/18/20 05:58 Pulse Ox 98 01/18/20 05:58 - Orders/Labs/Meds Orders: Active Orders 24 hr Category Date Time Status EKG 12 Lead [EKG Documentation Completion] [RC] STAT Care 01/18/20 06:12 Active CULTURE BLOOD [BC] Stat Lab 01/18/20 06:21 Received CULTURE BLOOD [BC] Stat Lab 01/18/20 06:22 Received Blood Culture x2 Reflex Set [OM.PC] Stat Oth 01/18/20 06:14 Ordered Labs: Laboratory Tests 01/18/20 01/18/20 01/18/20 Range/Units 06:21 06:21 06:21 WBC 10.4 H (5.0-10.0) 10^3/uL RBC 3.87 L (4.2-5.4) 10^6/uL Hgb 12.3 (12.0-16.0) g/dL Hct 38.0 (37.0-47.0) % MCV 98.2 (80-100) fL MCH 31.8 (27.0-34.0) pg MCHC 32.4 L (33.0-35.0) g/dL Plt Count 328 (150-450) 10^3/uL Neut % (Auto) 69.4 (42.2-75.2) % Lymph % (Auto) 14.6 L (20.5-50.1) % [place] % (Auto) 9.6 H (2-8) % Eos % (Auto) 5.5 H (1.0-3.0) % Baso % (Auto) 0.9 (0.0-1.0) % D-Dimer, Quantitative 215 (0-400) ng/mL Sodium 138 (136-145) mmol/L Potassium 4.1 (3.5-5.1) mmol/L Chloride 100 (98-107) mmol/L Carbon Dioxide 32 (21-32) mmol/L Anion Gap 10.1 (7-13) mEq/L BUN 30 H (7-18) mg/dL Creatinine 1.30 H (0.55-1.02) mg/dL Est Cr Clr Drug Dosing 41.78 mL/min Estimated GFR (MDRD) 41 BUN/Creatinine Ratio 23.1 (No establ ref range) Glucose 92 (74-99) mg/dL Lactic Acid (0.4-2.0) mmol/L Uric Acid 7.7 H (2.6-6.0) mg/dL Calcium 9.1 (8.5-10.1) mg/dL Magnesium 2.0 (1.8-2.4) mg/dL Total Bilirubin 0.3 (0.2-1.0) mg/dL AST 24 (15-37) U/L ALT 26 (14-59) U/L Alkaline Phosphatase 98 (46-116) U/L Troponin I 0.017 (0.000-0.056) ng/mL C-Reactive Protein 0.3 (0.0-0.9) mg/dL B-Natriuretic Peptide 282 H (0-100) pg/ml Total Protein 7.7 (6.4-8.2) g/dL Albumin 3.5 (3.4-5.0) g/dL Globulin 4.2 Albumin/Globulin Ratio 0.8 TSH, Ultra Sensitive (0.36-3.74) uIU/mL Urine Color (YELLOW) Urine Appearance (CLEAR) Urine pH (5.0-9.0) Ur Specific [place] (1.005-1.030) Urine Protein (NEGATIVE) Urine Glucose (UA) (NEGATIVE) Urine Ketones (NEGATIVE) Urine Occult Blood (NEGATIVE) Urine Nitrite (NEGATIVE) Urine Bilirubin (NEGATIVE) Urine Urobilinogen (0.2-1.0) mg/dL Ur Leukocyte Esterase (NEGATIVE) 01/18/20 01/18/20 01/18/20 Range/Units 06:21 06:21 06:55 WBC (5.0-10.0) 10^3/uL RBC (4.2-5.4) 10^6/uL Hgb (12.0-16.0) g/dL Hct (37.0-47.0) % MCV (80-100) fL MCH (27.0-34.0) pg MCHC (33.0-35.0) g/dL Plt Count (150-450) 10^3/uL Neut % (Auto) (42.2-75.2) % Lymph % (Auto) (20.5-50.1) % [place] % (Auto) (2-8) % Eos % (Auto) (1.0-3.0) % Baso % (Auto) (0.0-1.0) % D-Dimer, Quantitative (0-400) ng/mL Sodium (136-145) mmol/L Potassium (3.5-5.1) mmol/L Chloride (98-107) mmol/L Carbon Dioxide (21-32) mmol/L Anion Gap (7-13) mEq/L BUN (7-18) mg/dL Creatinine (0.55-1.02) mg/dL Est Cr Clr Drug Dosing mL/min Estimated GFR (MDRD) BUN/Creatinine Ratio (No establ ref range) Glucose (74-99) mg/dL Lactic Acid 0.9 (0.4-2.0) mmol/L Uric Acid (2.6-6.0) mg/dL Calcium (8.5-10.1) mg/dL Magnesium (1.8-2.4) mg/dL Total Bilirubin (0.2-1.0) mg/dL AST (15-37) U/L ALT (14-59) U/L Alkaline Phosphatase (46-116) U/L Troponin I (0.000-0.056) ng/mL C-Reactive Protein (0.0-0.9) mg/dL B-Natriuretic Peptide (0-100) pg/ml Total Protein (6.4-8.2) g/dL Albumin (3.4-5.0) g/dL Globulin Albumin/Globulin Ratio TSH, Ultra Sensitive 5.16 H (0.36-3.74) uIU/mL Urine Color Yellow (YELLOW) Urine Appearance Clear (CLEAR) Urine pH 7.0 (5.0-9.0) Ur Specific [place] 1.020 (1.005-1.030) Urine Protein Negative (NEGATIVE) Urine Glucose (UA) Negative (NEGATIVE) Urine Ketones Negative (NEGATIVE) Urine Occult Blood Negative (NEGATIVE) Urine Nitrite Negative (NEGATIVE) Urine Bilirubin Negative (NEGATIVE) Urine Urobilinogen 0.2 (0.2-1.0) mg/dL Ur Leukocyte Esterase Negative (NEGATIVE) Departure - Departure Disposition: Home, Self-Care 01 Clinical Impression: Chills (without fever) Hypothyroidism Qualifiers: Hypothyroidism type: unspecified Qualified Code(s): E03.9 - Hypothyroidism, unspecified - Discharge Information Instructions: Hypothyroidism Forms: ED Department Discharge Additional Instructions: Continue with previous therapies. See PCP once pandemic is over for management of your hypothyroidism. Return to the ED if new or worsening symptoms. During the Covid-19 Pandemic please make sure and stay home and away from people. Leave the house to get essentials like groceries and true life threatening illness for ED visits. Sepsis Event Note - Evaluation Sepsis Screening Result: No Definite Risk - Focused Exam Vital Signs: Vital Signs Temp Pulse Resp BP Pulse Ox 01/18/20 05:58 36.1 C 84 18 138/52 L 98 Date Exam was Performed: 01/18/20 Time Exam was Performed: 06:55 <Grady Yu - Last Filed: 01/18/20 07:45> Course - Re-Assessments/Exams Free Text/Narrative Re-Assessment/Exam: 01/18/20 07:43 Assumed care of the patient from [facility]. Please see her note as well. Labs have returned and really unremarkable except for incidental finding of the hypothyroidism. This could be related to her chills although it sounds like her complaints are more acute in nature than chronic from hypothyroidism. No signs of infection at this time. Recheck if anything new or worse. She is comfortable with this plan and her questions answered. Departure - Departure Time of Disposition: 07:35 Sepsis Event Note - Focused Exam Date Exam was Performed: 01/18/20 Time Exam was Performed: 07:35 - Assessment/Plan Assessment:: Hypothyroidism Chills, unknown origin cause, unremarkable work up. Plan: Continue with previous therapies. See PCP once pandemic is over for management of your hypothyroidism. Return to the ED if new or worsening symptoms. During the Covid-19 Pandemic please make sure and stay home and away from people. Leave the house to get essentials like groceries and true life threatening illness for ED visits.
[2020-01-18 06:53] LABS: ANION GAP 10.1 mEq/L (7-13)
== END 2020-01-18 08:15 | disposition home or self-care (01) ==
LOC: DL.ED 05:58
DX: E03.9 Hypothyroidism, unspecified (principal); I10 Essential (primary) hypertension; J45.909 Unspecified asthma, uncomplicated; Z79.01 Long term (current) use of anticoagulants; Z91.09 Other allergy status, other than to drugs and biological substances; Z88.8 Allergy status to other drugs, medicaments and biological substances
CPT/HCPCS: 36415; 71045; 80053; 81003; 83605; 83735; 83880; 84443; 84484; 84550; 85025; 85379; 86140; 87040; 93005; 99283; 99284-25

== ENCOUNTER 2021-03-04 23:08 | Emergency (ER) | payer MEDICARE, MEDICAID ==
[2021-03-04 23:49] VITALS: BP 152/74; PULSE 69
[2021-03-05] MEDS ORDERED: Ketorolac 30 MG/ML SDV IM ONE (01:05)
[2021-03-05] MEDS ORDERED: Orphenadrine 60 MG/2 ML Inj IM ONE (01:06)
[2021-03-05] MEDS ORDERED: Promethazine 25 MG/ML SDV IM ONE (01:06)
[2021-03-05] MEDS ORDERED: predniSONE 20 MG Tab PO ONE (01:07)
--- NOTE | 2021-03-05 02:01 | EDM.PDOC ---
ED HPI GENERAL MEDICAL PROBLEM - General Chief Complaint: Back Pain or Injury Stated Complaint: BACK PAIN Time Seen by Provider: 03/05/21 00:55 Source of Information: Reports: Patient History Limitations: Reports: No Limitations - History of Present Illness INITIAL COMMENTS - FREE TEXT/NARRATIVE: Patient comes emergency department today from home with complaints of severe right lower back pain. The patient has some chronic back pain as well as hip and pelvis pain. Document pretty good for the last couple of months until about the last couple of weeks. She had a procedure where she had to lay flat and the hospital since that time she has had some increased right lower back pain. She did try some tramadol today for her back pain but is not controlling her pain. Most the day today she has had severe mid right-sided lower back pain that radiates down her buttocks. She denies any recent falls or trauma. She denies any loss of bowel or bladder. She denies any saddle anesthesia. She is able to ambulate without any change in the functionality of her lower extremities but is quite uncomfortable. She denies any flank pain nausea vomiting fever chills. She denies any hematuria dysuria or urinary frequency. Back Pain Score (Numeric/FACES): 10 - Related Data Allergies Allergy/AdvReac Type Severity Reaction Status Date / Time adhesive tape Allergy Itching Verified 01/18/20 06:13 alendronate sodium Allergy Difficulty Verified 01/18/20 06:13 [From Fosamax] Swallowing bacitracin Allergy Itching Verified 01/18/20 06:13 mupirocin [From Bactroban] Allergy Rash Verified 01/18/20 06:13 mupirocin calcium Allergy Rash Verified 01/18/20 06:13 [From Bactroban] Home Meds: Home Meds Glucosamine/Chondroitin Sulf A [Glucosamine Chondroitin Cap] 1 tab PO BID 12/05/15 [History] Multivitamin [Daily Multiple Vitamin] 1 tab PO DAILY 12/05/15 [History] traMADol HCl [Ultram] 100 mg PO TID 12/05/15 [History] Calcium Carbonate/Vitamin D3 [Calcium Carbonate/Vitamin D 1250 MG-200 Unit] 1 tab PO DAILY 04/05/16 [History] Ferrous Sulfate 325 mg PO ASDIRECTED 04/05/16 [History] Furosemide [Lasix] 80 mg PO DAILY 04/05/16 [History] Spironolactone [Aldactone] 25 mg PO DAILY 04/05/16 [History] Apixaban [Eliquis] 5 mg PO BID 11/26/17 [History] Fosinopril [Monopril] 0.5 mg PO DAILY 11/26/17 [History] Metoprolol Succinate 75 mg PO ASDIRECTED 11/26/17 [History] Past Medical History HEENT History: Reports: None Cardiovascular History: Reports: Heart Murmur, Hypertension, Pacemaker Other Cardiovascular History: rapid heart rate Respiratory History: Reports: Asthma Gastrointestinal History: Reports: GERD Genitourinary History: Reports: None AUDITOR TAX History: Reports: None Musculoskeletal History: Reports: Fracture, Osteoarthritis, RA Neurological History: Reports: None Psychiatric History: Reports: None Endocrine/Metabolic History: Reports: None Hematologic History: Reports: Anemia Immunologic History: Reports: None Oncologic (Cancer) History: Reports: None Dermatologic History: Reports: Psoriasis - Infectious Disease History Infectious Disease History: Reports: Chicken Pox, Measles, Rubella Other Infectious Disease History: pt unsure of all childhood illnesses. - Past Surgical History Head Surgeries/Procedures: Reports: None Cardiovascular Surgical History: Reports: None Respiratory Surgical History: Reports: None GI Surgical History: Reports: Appendectomy, Colonoscopy Female Surgical History: Reports: Tubal Ligation Musculoskeletal Surgical History: Reports: None, Hip Replacement Social & Family History - Family History Family Medical History: No Pertinent Family History - Tobacco Use Tobacco Use Status *Q: Never Tobacco User Second Hand Smoke Exposure: No - Caffeine Use Caffeine Use: Reports: None - Recreational Drug Use Recreational Drug Use: No ED ROS GENERAL - Review of Systems Review Of Systems: Comprehensive ROS is negative, except as noted in HPI. ED EXAM,LOWER BACK PAIN/INJURY - Physical Exam Exam: See Below Exam Limited By: No Limitations General Appearance: Alert, WD/WN, No Apparent Distress Eye Exam: Bilateral Eye: EOMI Ears: Normal External Exam Nose: Normal Inspection Throat/Mouth: Normal Inspection Head: Atraumatic, Normocephalic Neck: Normal Inspection, Supple, Non-Tender Respiratory/Chest: No Respiratory Distress, Lungs Clear, No Accessory Muscle Use, Chest Non-Tender Cardiovascular: Normal Peripheral Pulses, Regular Rate, Rhythm GI/Abdominal: Normal Bowel Sounds, Soft, Non-Tender (Female) Exam: Deferred Rectal (Female) Exam: Deferred Back Exam: Paraspinal Tenderness (She has paraspinal tenderness in the region of L to L3 on the right side. There is no bruising swelling ecchymosis other signs of trauma. Palpation of the posterior midline spine does not elicit any bony deformity step-offs). No: Vertebral Tenderness Extremities: Normal Inspection, Normal Capillary Refill, Pedal Edema (2+ bi;aterally) Neurological: Alert, Normal Mood/Affect, Normal Dorsiflexion, CN II-XII Intact, Normal Plantar Flexion, Normal Reflexes, No Motor/Sensory Deficits. No: Straight Leg Raise (L), Straight Leg Raise (R), Saddle Anesthesia DTR - Lower Extremities: 2+: Knee (R), Knee (L), Ankle (R), Ankle (L) Psychiatric: Normal Affect, Normal Mood Skin Exam: Warm, Dry, Intact, Normal Color, No Rash Lymphatic: No Adenopathy Course - Vital Signs Last Recorded V/S: Last Vital Signs Temp 97 F 03/04/21 23:39 Pulse 69 03/04/21 23:39 Resp 18 03/04/21 23:39 BP 152/74 H 03/04/21 23:39 Pulse Ox 97 03/04/21 23:39 - Orders/Labs/Meds Labs: Laboratory Tests 03/05/21 Range/Units 00:36 Urine Color Yellow (YELLOW) Urine Appearance Clear (CLEAR) Urine pH 5.5 (5.0-9.0) Ur Specific [place] 1.020 (1.005-1.030) Urine Protein Negative (NEGATIVE) Urine Glucose (UA) Negative (NEGATIVE) Urine Ketones Negative (NEGATIVE) Urine Occult Blood Negative (NEGATIVE) Urine Nitrite Negative (NEGATIVE) Urine Bilirubin Negative (NEGATIVE) Urine Urobilinogen 0.2 (0.2-1.0) mg/dL Ur Leukocyte Esterase Negative (NEGATIVE) Meds: Medications Discontinued Medications Generic Name Dose Route Start Last Admin Trade Name Freq PRN Reason Stop Dose Admin Ketorolac Tromethamine 30 mg 03/05/21 01:05 03/05/21 01:20 Ketorolac 30 Mg/Ml Sdv IM 03/05/21 01:06 30 mg ONETIME ONE Administration Orphenadrine Citrate 60 mg 03/05/21 01:06 03/05/21 01:18 Orphenadrine 60 Mg/2 Ml Inj IM 03/05/21 01:07 60 mg ONETIME ONE Administration Prednisone 40 mg 03/05/21 01:07 03/05/21 01:22 Prednisone 20 Mg Tab PO 03/05/21 01:08 40 mg ONETIME ONE Administration Promethazine HCl 25 mg 03/05/21 01:06 03/05/21 01:17 Promethazine 25 Mg/Ml Sdv IM 03/05/21 01:07 25 mg ONETIME ONE Administration - Re-Assessments/Exams Free Text/Narrative Re-Assessment/Exam: 03/05/21 Patient was given ketorolac 30 mg IM. Norflex 60 mg IM. Phenergan 25 mg IM. Prednisone 40 mg p.o. Patient felt quite a bit better about 75% improvement of her pain following the above therapy. I do not feel that any imaging is warranted at this time as she has no recent falls or trauma. We will discharge her home with Flexeril as well as some prednisone. She is not improving over the next couple of days and physical therapy will be paramount for her. Discharge directions as below are explained to the patient she was comfortable this plan and her questions were answered. Departure - Departure Time of Disposition: 01:54 Disposition: Home, Self-Care 01 Clinical Impression: Lower back pain Qualifiers: Chronicity: acute Back pain laterality: right Sciatica presence: with sciatica Sciatica laterality: sciatica of right side Qualified Code(s): M54.41 - Lumbago with sciatica, right side - Discharge Information Instructions: Sciatica, [id number], Pain Medicine Instructions, [id number] Referrals: Daniel Irvin NP [Primary Care Provider] - Forms: ED Department Discharge Additional Instructions: Heat or ice to the area which ever works the best for you. Tylenol and or Ibuprofen as needed for pain. Prednisone, 40mg daily for the next 5 days. RX given to the patient. Flexeril, 1 tablet three times a day as needed for back pain and sciatica. RX given to the patient. If not improving consider Physical therapy. Return to the ED if new or worsening symptoms. Follow up with PCP in 1 week if continued issues. Sepsis Event Note (ED) - Evaluation Sepsis Screening Result: No Definite Risk - Focused Exam Vital Signs: Vital Signs Temp Pulse Resp BP Pulse Ox 03/04/21 23:39 97 F 69 18 152/74 H 97
== END 2021-03-05 02:04 | disposition home or self-care (01) ==
LOC: DL.ED 23:08
DX: M54.41 Lumbago with sciatica, right side (principal); I10 Essential (primary) hypertension; J45.909 Unspecified asthma, uncomplicated; Z79.01 Long term (current) use of anticoagulants; Z91.048 Other nonmedicinal substance allergy status; Z88.8 Allergy status to other drugs, medicaments and biological substances; Z88.1 Allergy status to other antibiotic agents; Z79.899 Other long term (current) drug therapy
CPT/HCPCS: 81003; 96372; 99283; J1885; J2360; J2550; J7512

== ENCOUNTER 2022-03-07 04:51 | Day surgery (SDC) | payer MEDICARE, MEDICAID ==
[~2022-03-07 04:51] MED LIST changes: -Adenosine 6 MG/2 ML SDV IVPUSH ONE; +Dextrose 5%-0.45% NaCl 1,000 ML IV SCH; +Sodium Chloride 0.9% 10 ML Syringe FLUSH PRN; +Sodium Chloride 0.9% 10 ML Syringe FLUSH SCH
[2022-03-07] MEDS: Dextrose 5%-0.45% NaCl 1,000 ML IV SCH (06:04)
[2022-03-07] MEDS ORDERED: Midazolam 1 MG/ML 2 ML SDV ONE (06:13)
[2022-03-07] MEDS ORDERED: fentaNYL 100 MCG/2 ML SDV ONE (06:13)
[2022-03-07] MEDS: fentaNYL 100 MCG/2 ML SDV IV ONE ×2 (07:38→07:39)
[2022-03-07] MEDS: Midazolam 1 MG/ML 2 ML SDV IV ONE ×2 (07:40→07:41)
[2022-03-07 11:25] VITALS: BP 92/40; PULSE 58
== END 2022-03-07 10:00 | disposition home or self-care (01) ==
LOC: DL.ENDO 04:51
PROVIDERS: ATTEND Internal Medicine Gastroenterology
DX: K22.2 Esophageal obstruction (principal); K44.9 Diaphragmatic hernia without obstruction or gangrene; E66.09 Other obesity due to excess calories; K21.9 Gastro-esophageal reflux disease without esophagitis; I10 Essential (primary) hypertension; M81.0 Age-related osteoporosis without current pathological fracture; N83.209 Unspecified ovarian cyst, unspecified side; I48.0 Paroxysmal atrial fibrillation; M06.9 Rheumatoid arthritis, unspecified; K57.30 Diverticulosis of large intestine without perforation or abscess without bleeding; Z68.32 Body mass index [BMI] 32.0-32.9, adult; Z01.812 Encounter for preprocedural laboratory examination; Z20.822 Contact with and (suspected) exposure to COVID-19; Z90.49 Acquired absence of other specified parts of digestive tract; Z88.8 Allergy status to other drugs, medicaments and biological substances; Z98.890 Other specified postprocedural states
CPT/HCPCS: 87077; J2250; J3010; J7042; U0002

== ENCOUNTER 2022-03-18 06:41 | Day surgery (SDC) | payer MEDICARE, MEDICAID ==
[2022-03-18] MEDS ORDERED: Lidocaine 2% 20 ML MDV ONE (06:42)
[2022-03-18] MEDS ORDERED: Propofol 200 MG/20 ML SDV IV ONE ×2 (06:42)
[2022-03-18] MEDS ORDERED: Dextrose 5%-0.45% NaCl 1,000 ML IV ONE (06:42)
[2022-03-18] MEDS ORDERED: Lidocaine 1% 30 ML SDV ONE (06:42)
[2022-03-18 09:34] VITALS: BP 114/45; PULSE 62
== END 2022-03-18 09:40 | disposition home or self-care (01) ==
LOC: DL.ENDO 06:41
PROVIDERS: ATTEND Internal Medicine Gastroenterology
DX: K57.30 Diverticulosis of large intestine without perforation or abscess without bleeding (principal); K64.8 Other hemorrhoids; E66.09 Other obesity due to excess calories; K21.9 Gastro-esophageal reflux disease without esophagitis; I10 Essential (primary) hypertension; M81.0 Age-related osteoporosis without current pathological fracture; N83.209 Unspecified ovarian cyst, unspecified side; I48.0 Paroxysmal atrial fibrillation; Z88.8 Allergy status to other drugs, medicaments and biological substances; Z88.1 Allergy status to other antibiotic agents; Z01.812 Encounter for preprocedural laboratory examination; Z20.822 Contact with and (suspected) exposure to COVID-19; Z98.890 Other specified postprocedural states; Z90.49 Acquired absence of other specified parts of digestive tract
CPT/HCPCS: 00811; 45378; J2704; J7042; U0002

== ENCOUNTER 2024-12-07 12:33 | Inpatient (IN) | payer MEDICARE, MEDICAID ==
[2024-12-07] MEDS: Dexamethasone 4 MG/ML SDV IVPUSH ONE (13:29)
[2024-12-07] MEDS ORDERED: Polyethylene Glycol 3350 Powder 17 GM Packet PO PRN (16:30)
[2024-12-07] MEDS ORDERED: Docusate Sodium 100 MG Cap PO PRN (16:30)
[2024-12-07] MEDS ORDERED: Acetaminophen 325 MG Tab PO PRN (16:30)
[2024-12-07] MEDS ORDERED: Albuterol/Ipratropium 3.0-0.5 MG/3 ML Neb Soln NEB PRN (16:30)
[2024-12-07] MEDS ORDERED: Sennosides/Docusate Sodium 50-8.6 MG Tab PO PRN (16:30)
[2024-12-07 16:56] LABS: BASOPHILS PERCENT AUTO 0.1 % (0.0-1.0); EOSINOPHILS PERCENT AUTO 0.1 % (1.0-3.0); HEMATOCRIT 37.3 % (37.0-47.0); HEMOGLOBIN 11.6 g/dL (12.0-16.0); LYMPHOCYTES PERCENT AUTO 2.4 % (20.5-50.1); MEAN CORPUSCULAR HEMOGLOBIN 31.3 pg (27.0-34.0); MEAN CORPUSCULAR HGB CONC 31.1 g/dL (33.0-35.0); MEAN CORPUSCULAR VOLUME 100.5 fL (80-100); MONOCYTES PERCENT AUTO 1.4 % (2-8); PLATELET COUNT,PLT 188 10^3/uL (150-450); RED BLOOD CELL COUNT 3.71 10^6/uL (4.2-5.4); WHITE BLOOD CELL COUNT,WBC 14.6 10^3/uL (5.0-10.0)
[2024-12-07 17:15] LABS: PROTHROMBIN TIME 10.6 SEC (9.0-12.0); PTT,PARTIAL THROMBOPLSTIN TIME 25.7 SEC (22.0-34.0)
[2024-12-07 17:16] LABS: A/G RATIO 0.69; ALBUMIN 2.9 g/dL (3.4-5.0); ANION GAP 9.9 mEq/L (7-13); BILIRUBIN TOTAL 0.3 mg/dL (0.2-1.0); BUN/CREATININE RATIO 14.9 (No establ ref range); CALCIUM 8.5 mg/dL (8.5-10.1); CREATININE 1.14 mg/dL (0.55-1.02); EST CRCL DRUG DOSING (CG) 41.14 mL/min; MAGNESIUM 2.3 mg/dL (1.8-2.4); POTASSIUM,K 4.9 mmol/L (3.5-5.1); PROTEIN TOTAL,TP 7.1 g/dL (6.4-8.2)
[2024-12-07] MEDS: Rosuvastatin 10 MG Tab PO SCH (21:19)
[2024-12-07] MEDS: Allopurinol 300 MG Tab PO SCH (21:19)
[2024-12-07] MEDS: Apixaban 5 MG Tab PO SCH (21:19)
[2024-12-07] MEDS: Famotidine 20 MG Tab PO SCH (21:21)
[2024-12-07] MEDS: Cholecalciferol (Vitamin D3) 25 MCG Tab PO SCH (21:21)
[2024-12-07] MEDS: Ascorbic Acid 500 MG Tab PO SCH (21:21)
[2024-12-07] MEDS: Melatonin 3 MG Tab PO PRN (21:22)
[2024-12-07] MEDS: traMADol 50 MG Tab PO PRN (21:22)
[2024-12-07] MEDS: Cyclobenzaprine 10 MG Tab PO PRN (21:22)
[2024-12-08] MEDS: Levothyroxine 25 MCG Tab PO SCH (05:32)
[2024-12-08 06:20] LABS: BASOPHILS PERCENT AUTO 0.2 % (0.0-1.0); HEMATOCRIT 33.7 % (37.0-47.0); HEMOGLOBIN 10.4 g/dL (12.0-16.0); LYMPHOCYTES PERCENT AUTO 3.1 % (20.5-50.1); MEAN CORPUSCULAR HGB CONC 30.9 g/dL (33.0-35.0); MEAN CORPUSCULAR VOLUME 100.3 fL (80-100); MONOCYTES PERCENT AUTO 3.5 % (2-8); NEUTROPHILS PERCENT AUTO 93.2 % (42.2-75.2); PLATELET COUNT,PLT 190 10^3/uL (150-450); RED BLOOD CELL COUNT 3.36 10^6/uL (4.2-5.4); WHITE BLOOD CELL COUNT,WBC 16.2 10^3/uL (5.0-10.0)
[2024-12-08 07:17] LABS: HEMOGLOBIN A1C 5.8 % (<5.7)
[2024-12-08 08:12] LABS: ALANINE AMINOTRANSFERASE,ALT 27 U/L (14-59); ALBUMIN 2.5 g/dL (3.4-5.0); ALKALINE PHOSPHATASE 46 U/L (46-116); ANION GAP 13.1 mEq/L (7-13); ASPARTATE AMNIOTRANSFERASE,AST 18 U/L (15-37); BILIRUBIN TOTAL 0.2 mg/dL (0.2-1.0); BLOOD UREA NITROGEN,BUN 26 mg/dL (7-18); BUN/CREATININE RATIO 21.1 (No establ ref range); CALCIUM 8.1 mg/dL (8.5-10.1); CARBON DIOXIDE,CO2 27 mmol/L (21-32); CHLORIDE,CL 104 mmol/L (98-107); CREATININE 1.23 mg/dL (0.55-1.02); EST CRCL DRUG DOSING (CG) 38.13 mL/min; GLUCOSE RANDOM 134 mg/dL (70-99); MAGNESIUM 2.4 mg/dL (1.8-2.4); POTASSIUM,K 5.1 mmol/L (3.5-5.1); PROTEIN TOTAL,TP 6.4 g/dL (6.4-8.2); SODIUM,NA 139 mmol/L (136-145)
[2024-12-08 08:13] LABS: A/G RATIO 0.64; ESTIMATED GFR 46 mL/min (>=60)
[2024-12-08 09:07] LABS: FOLIC ACID > 20.0 ng/mL (8.6-58.9)
[2024-12-08] MEDS: Torsemide 20 MG Tab PO SCH (09:19)
[2024-12-08] MEDS: Spironolactone 25 MG Tab PO SCH (09:19)
[2024-12-08] MEDS: Tamoxifen 10 MG Tab PO SCH (09:19)
[2024-12-08] MEDS: predniSONE 5 MG Tab PO SCH (09:20)
[2024-12-08] MEDS: Metoprolol Succinate 25 MG Tab.ER PO SCH (09:20)
[2024-12-08 15:35] LABS: APPEARANCE,URINE CLEAR (CLEAR); BILIRUBIN,URINE NEGATIVE (NEGATIVE); COLOR,URINE YELLOW (YELLOW); GLUCOSE,URINE NEGATIVE (NEGATIVE); KETONES,URINE NEGATIVE (NEGATIVE); LEUKOCYTE ESTERASE,URINE NEGATIVE (NEGATIVE); NITRITE,URINE NEGATIVE (NEGATIVE); OCCULT BLOOD,URINE NEGATIVE (NEGATIVE); PH,URINE 5.5 (5.0-9.0); PROTEIN,URINE NEGATIVE (NEGATIVE); UROBILINOGEN,URINE 0.2 mg/dL (0.2-1.0)
[2024-12-08] MEDS: Ferrous Sulfate 325 MG Tab PO SCH (20:30)
[2024-12-09 06:17] LABS: BASOPHILS PERCENT AUTO 0.1 % (0.0-1.0); EOSINOPHILS PERCENT AUTO 0.3 % (1.0-3.0); HEMATOCRIT 33.3 % (37.0-47.0); HEMOGLOBIN 10.3 g/dL (12.0-16.0); LYMPHOCYTES PERCENT AUTO 5.3 % (20.5-50.1); MEAN CORPUSCULAR HGB CONC 30.9 g/dL (33.0-35.0); MEAN CORPUSCULAR VOLUME 100.3 fL (80-100); MONOCYTES PERCENT AUTO 7.4 % (2-8); NEUTROPHILS PERCENT AUTO 86.9 % (42.2-75.2); PLATELET COUNT,PLT 224 10^3/uL (150-450); RED BLOOD CELL COUNT 3.32 10^6/uL (4.2-5.4)
[2024-12-09 06:45] LABS: ALBUMIN 2.5 g/dL (3.4-5.0); ANION GAP 11.9 mEq/L (7-13); BILIRUBIN TOTAL 0.2 mg/dL (0.2-1.0); BUN/CREATININE RATIO 34.2 (No establ ref range); CREATININE 1.49 mg/dL (0.55-1.02); EST CRCL DRUG DOSING (CG) 31.48 mL/min; MAGNESIUM 2.3 mg/dL (1.8-2.4); POTASSIUM,K 4.9 mmol/L (3.5-5.1); PROTEIN TOTAL,TP 6.2 g/dL (6.4-8.2)
[2024-12-09 06:49] LABS: A/G RATIO 0.68
[2024-12-09] MEDS: Torsemide 20 MG Tab PO SCH (08:59)
[2024-12-09] MEDS ORDERED: Torsemide 20 MG Tab PO SCH (09:00)
[2024-12-09] MEDS: Famotidine 20 MG Tab PO SCH (09:00)
[2024-12-09] MEDS: Spironolactone 25 MG Tab PO SCH (09:00)
[2024-12-09] MEDS: Docusate Sodium 100 MG Cap PO SCH (09:15)
[2024-12-09] MEDS: Polyethylene Glycol 3350 Powder 17 GM Packet PO SCH (09:18)
[2024-12-09] MEDS: Acetaminophen/HYDROcodone 325-5 MG Tab PO PRN (13:20)
[2024-12-09] MEDS: Sennosides/Docusate Sodium 50-8.6 MG Tab PO SCH (21:54)
[2024-12-10 07:06] LABS: BASOPHILS PERCENT AUTO 0.3 % (0.0-1.0); EOSINOPHILS PERCENT AUTO 1.5 % (1.0-3.0); HEMATOCRIT 33.6 % (37.0-47.0); HEMOGLOBIN 10.6 g/dL (12.0-16.0); LYMPHOCYTES PERCENT AUTO 6.9 % (20.5-50.1); MEAN CORPUSCULAR HEMOGLOBIN 31.7 pg (27.0-34.0); MEAN CORPUSCULAR HGB CONC 31.5 g/dL (33.0-35.0); MEAN CORPUSCULAR VOLUME 100.6 fL (80-100); NEUTROPHILS PERCENT AUTO 82.3 % (42.2-75.2); PLATELET COUNT,PLT 231 10^3/uL (150-450); RED BLOOD CELL COUNT 3.34 10^6/uL (4.2-5.4); WHITE BLOOD CELL COUNT,WBC 11.7 10^3/uL (5.0-10.0)
[2024-12-10 07:28] LABS: ALBUMIN 2.5 g/dL (3.4-5.0); ANION GAP 11.9 mEq/L (7-13); BILIRUBIN TOTAL 0.2 mg/dL (0.2-1.0); BUN/CREATININE RATIO 36.5 (No establ ref range); CALCIUM 8.4 mg/dL (8.5-10.1); CREATININE 1.59 mg/dL (0.55-1.02); EST CRCL DRUG DOSING (CG) 29.5 mL/min; MAGNESIUM 2.4 mg/dL (1.8-2.4); POTASSIUM,K 4.9 mmol/L (3.5-5.1); PROTEIN TOTAL,TP 6.2 g/dL (6.4-8.2)
[2024-12-10 07:30] LABS: A/G RATIO 0.68
[2024-12-10] MEDS: Sodium Chloride 0.9% 500 ML IV SCH (08:04)
[2024-12-10] MEDS: Sodium Chloride 0.9% 10 ML Syringe FLUSH PRN (08:05)
[2024-12-10] MEDS: Ondansetron 4 MG/2 ML SDV IVPUSH PRN (10:16)
[2024-12-10] MEDS ORDERED: Cyclobenzaprine 10 MG Tab PO PRN (13:14)
[2024-12-10] MEDS: Diclofenac Sodium 1% Gel 100 GM Tube TOP PRN (13:48)
[2024-12-10 16:27] VITALS: BP 102/58; PULSE 60
== END 2024-12-10 17:19 | disposition swing bed (61) | DRG 552 ==
LOC: DL.ED 12:33 → DL.MS 13:52
PROVIDERS: ADMIT Internal Medicine; ATTEND Student in an Organized Health Care Education/Training Program
DX: M54.41 Lumbago with sciatica, right side (principal); M48.061 Spinal stenosis, lumbar region without neurogenic claudication; K57.32 Diverticulitis of large intestine without perforation or abscess without bleeding; M80.08XA Age-related osteoporosis with current pathological fracture, vertebra(e), initial encounter for fracture; G89.29 Other chronic pain; H54.7 Unspecified visual loss; I12.9 Hypertensive chronic kidney disease with stage 1 through stage 4 chronic kidney disease, or unspecified chronic kidney disease; N18.9 Chronic kidney disease, unspecified; I49.5 Sick sinus syndrome; J45.909 Unspecified asthma, uncomplicated; K21.9 Gastro-esophageal reflux disease without esophagitis; I48.91 Unspecified atrial fibrillation; M19.90 Unspecified osteoarthritis, unspecified site; M10.9 Gout, unspecified; M06.9 Rheumatoid arthritis, unspecified; E21.3 Hyperparathyroidism, unspecified; I45.9 Conduction disorder, unspecified; D72.829 Elevated white blood cell count, unspecified; D53.9 Nutritional anemia, unspecified; Z96.649 Presence of unspecified artificial hip joint; E88.09 Other disorders of plasma-protein metabolism, not elsewhere classified; I48.0 Paroxysmal atrial fibrillation; Z79.52 Long term (current) use of systemic steroids; D63.1 Anemia in chronic kidney disease; Z91.048 Other nonmedicinal substance allergy status; T38.0X5A Adverse effect of glucocorticoids and synthetic analogues, initial encounter; K57.30 Diverticulosis of large intestine without perforation or abscess without bleeding; K22.2 Esophageal obstruction; E66.3 Overweight; Z68.28 Body mass index [BMI] 28.0-28.9, adult; Z88.1 Allergy status to other antibiotic agents; Z88.2 Allergy status to sulfonamides; Z88.8 Allergy status to other drugs, medicaments and biological substances; Z91.09 Other allergy status, other than to drugs and biological substances; Z79.01 Long term (current) use of anticoagulants; Z79.899 Other long term (current) drug therapy; Z95.0 Presence of cardiac pacemaker; Z87.81 Personal history of (healed) traumatic fracture; Z79.1 Long term (current) use of non-steroidal anti-inflammatories (NSAID); Z90.89 Acquired absence of other organs; Z90.49 Acquired absence of other specified parts of digestive tract; Z98.51 Tubal ligation status; Z98.890 Other specified postprocedural states; Z79.02 Long term (current) use of antithrombotics/antiplatelets
CPT/HCPCS: 72131; 72192; 96374; 99284; 99285; J1100; 36415; 76770; 80053; 81003; 82550; 82607; 82746; 83036; 83735; 85025; 85610; 85730; 97110-GP; 97161-GP; 97165-GO; 97530-GO; 97530-GP; 97535-GO; 99223; 99232; 99238; A9270-GY; J2405; J7040; J7512

== ENCOUNTER 2024-12-10 16:16 | Inpatient (IN) | payer MEDICARE, MEDICAID ==
[2024-12-10] MEDS ORDERED: Sodium Chloride 0.9% 10 ML Syringe FLUSH PRN (16:34)
[2024-12-10] MEDS ORDERED: Sodium Chloride 0.9% 500 ML IV SCH (16:34)
[2024-12-10] MEDS ORDERED: Diclofenac Sodium 1% Gel 100 GM Tube TOP PRN (16:34)
[2024-12-10] MEDS ORDERED: Albuterol/Ipratropium 3.0-0.5 MG/3 ML Neb Soln NEB PRN (16:34)
[2024-12-10] MEDS: Acetaminophen/HYDROcodone 325-5 MG Tab PO PRN (21:07)
[2024-12-10] MEDS: Apixaban 5 MG Tab PO SCH (21:07)
[2024-12-10] MEDS: Polyethylene Glycol 3350 Powder 17 GM Packet PO SCH (21:07)
[2024-12-10] MEDS: Melatonin 3 MG Tab PO PRN (21:08)
[2024-12-10] MEDS: Ascorbic Acid 500 MG Tab PO SCH (21:08)
[2024-12-10] MEDS: Allopurinol 300 MG Tab PO SCH (21:08)
[2024-12-10] MEDS: Cholecalciferol (Vitamin D3) 25 MCG Tab PO SCH (21:08)
[2024-12-10] MEDS: Ferrous Sulfate 325 MG Tab PO SCH (21:09)
[2024-12-10] MEDS: Cyclobenzaprine 10 MG Tab PO PRN (21:09)
[2024-12-10] MEDS: Sennosides/Docusate Sodium 50-8.6 MG Tab PO SCH (21:09)
[2024-12-10] MEDS: Docusate Sodium 100 MG Cap PO SCH (21:10)
[2024-12-10] MEDS: Rosuvastatin 10 MG Tab PO SCH (21:10)
[2024-12-10] MEDS: Sodium Chloride 0.9% 10 ML Syringe FLUSH SCH (21:11)
[2024-12-11] MEDS: Levothyroxine 25 MCG Tab PO SCH (05:17)
[2024-12-11 06:22] LABS: BASOPHILS PERCENT AUTO 0.5 % (0.0-1.0); EOSINOPHILS PERCENT AUTO 2.4 % (1.0-3.0); HEMATOCRIT 33.4 % (37.0-47.0); HEMOGLOBIN 10.6 g/dL (12.0-16.0); LYMPHOCYTES PERCENT AUTO 7.5 % (20.5-50.1); MEAN CORPUSCULAR HEMOGLOBIN 31.7 pg (27.0-34.0); MEAN CORPUSCULAR HGB CONC 31.7 g/dL (33.0-35.0); MONOCYTES PERCENT AUTO 9.5 % (2-8); NEUTROPHILS PERCENT AUTO 80.1 % (42.2-75.2); PLATELET COUNT,PLT 219 10^3/uL (150-450); RED BLOOD CELL COUNT 3.34 10^6/uL (4.2-5.4); WHITE BLOOD CELL COUNT,WBC 11.5 10^3/uL (5.0-10.0)
[2024-12-11 07:19] LABS: ALBUMIN 2.5 g/dL (3.4-5.0); BILIRUBIN TOTAL 0.2 mg/dL (0.2-1.0); BUN/CREATININE RATIO 29.5 (No establ ref range); CALCIUM 8.6 mg/dL (8.5-10.1); CREATININE 1.39 mg/dL (0.55-1.02); EST CRCL DRUG DOSING (CG) 33.74 mL/min; MAGNESIUM 2.3 mg/dL (1.8-2.4); PROTEIN TOTAL,TP 6.1 g/dL (6.4-8.2)
[2024-12-11 07:20] LABS: A/G RATIO 0.69
[2024-12-11] MEDS: Tamoxifen 10 MG Tab PO SCH (09:46)
[2024-12-11] MEDS: Metoprolol Succinate 25 MG Tab.ER PO SCH (09:47)
[2024-12-11] MEDS: predniSONE 5 MG Tab PO SCH (09:48)
[2024-12-11] MEDS: Famotidine 20 MG Tab PO SCH (09:48)
[2024-12-12] MEDS: traMADol 50 MG Tab PO PRN (19:10)
[2024-12-12] MEDS: Acetaminophen 325 MG Tab PO PRN (21:31)
[2024-12-13] MEDS ORDERED: Morphine 2 MG/ML SYRINGE IVPUSH PRN (09:30)
[2024-12-13] MEDS: oxyCODONE 5 MG Tab PO SCH (09:41)
[2024-12-13] MEDS: Acetaminophen 325 MG Tab PO SCH (09:42)
[2024-12-13 11:03] LABS: ANION GAP 14.7 mEq/L (7-13); BLOOD UREA NITROGEN,BUN 34 mg/dL (7-18); CALCIUM 8.8 mg/dL (8.5-10.1); CARBON DIOXIDE,CO2 26 mmol/L (21-32); CHLORIDE,CL 102 mmol/L (98-107); CREATININE 1.45 mg/dL (0.55-1.02); EST CRCL DRUG DOSING (CG) 32.35 mL/min; GLUCOSE RANDOM 317 mg/dL (70-99); POTASSIUM,K 4.7 mmol/L (3.5-5.1); SODIUM,NA 138 mmol/L (136-145)
[2024-12-13 11:04] LABS: ESTIMATED GFR 38 mL/min (>=60); FOLIC ACID > 20.0 ng/mL (8.6-58.9)
[2024-12-14 05:51] LABS: BASOPHILS PERCENT AUTO 0.3 % (0.0-1.0); EOSINOPHILS PERCENT AUTO 2.8 % (1.0-3.0); HEMATOCRIT 30.3 % (37.0-47.0); HEMOGLOBIN 9.2 g/dL (12.0-16.0); LYMPHOCYTES PERCENT AUTO 5.6 % (20.5-50.1); MEAN CORPUSCULAR HGB CONC 30.4 g/dL (33.0-35.0); MONOCYTES PERCENT AUTO 8.4 % (2-8); NEUTROPHILS PERCENT AUTO 82.9 % (42.2-75.2); PLATELET COUNT,PLT 209 10^3/uL (150-450); RED BLOOD CELL COUNT 2.97 10^6/uL (4.2-5.4); WHITE BLOOD CELL COUNT,WBC 11.8 10^3/uL (5.0-10.0)
[2024-12-14 06:00] LABS: CALCIUM 8.5 mg/dL (8.5-10.1); CREATININE 1.31 mg/dL (0.55-1.02); EST CRCL DRUG DOSING (CG) 35.8 mL/min
[2024-12-14 06:04] LABS: ANION GAP 8.9 mEq/L (7-13); POTASSIUM,K 4.9 mmol/L (3.5-5.1)
[2024-12-14] MEDS: Ondansetron 4 MG/2 ML SDV ONE (08:24)
[2024-12-14] MEDS: Ondansetron 4 MG/2 ML SDV IVPUSH SCH (09:14)
[2024-12-14] MEDS: oxyCODONE 5 MG Tab PO SCH (12:15)
[2024-12-14 15:37] LABS: APPEARANCE,URINE CLEAR (CLEAR); BILIRUBIN,URINE NEGATIVE (NEGATIVE); COLOR,URINE YELLOW (YELLOW); GLUCOSE,URINE NEGATIVE (NEGATIVE); KETONES,URINE NEGATIVE (NEGATIVE); LEUKOCYTE ESTERASE,URINE NEGATIVE (NEGATIVE); NITRITE,URINE NEGATIVE (NEGATIVE); OCCULT BLOOD,URINE NEGATIVE (NEGATIVE); PROTEIN,URINE NEGATIVE (NEGATIVE); UROBILINOGEN,URINE 0.2 mg/dL (0.2-1.0)
[2024-12-14] MEDS: Acetaminophen/HYDROcodone 325-5 MG Tab PO PRN (22:05)
[2024-12-14] MEDS: Sodium Chloride 0.9% 10 ML Syringe FLUSH PRN (23:06)
[2024-12-14] MEDS: Ondansetron 4 MG/2 ML SDV IVPUSH PRN (23:06)
[2024-12-15] MEDS: Acetaminophen 325 MG Tab PO SCH (10:09)
[2024-12-15] MEDS: oxyCODONE 5 MG Tab PO PRN (16:42)
[2024-12-15] MEDS: Lidocaine 5% 700 MG Patch TOP SCH (16:44)
[2024-12-16 07:38] VITALS: PULSE 71
[2024-12-16 08:53] VITALS: BP 123/60
== END 2024-12-16 14:00 | disposition home health service (06) | DRG 552 ==
LOC: DL.MS 17:19
PROVIDERS: ADMIT Internal Medicine; ATTEND Internal Medicine
DX: M48.061 Spinal stenosis, lumbar region without neurogenic claudication (principal); N17.9 Acute kidney failure, unspecified; M06.9 Rheumatoid arthritis, unspecified; M81.0 Age-related osteoporosis without current pathological fracture; J45.909 Unspecified asthma, uncomplicated; K21.9 Gastro-esophageal reflux disease without esophagitis; I12.9 Hypertensive chronic kidney disease with stage 1 through stage 4 chronic kidney disease, or unspecified chronic kidney disease; N18.9 Chronic kidney disease, unspecified; M10.9 Gout, unspecified; M19.90 Unspecified osteoarthritis, unspecified site; Z96.642 Presence of left artificial hip joint; I48.0 Paroxysmal atrial fibrillation; E03.9 Hypothyroidism, unspecified; K44.9 Diaphragmatic hernia without obstruction or gangrene; D53.9 Nutritional anemia, unspecified; E88.09 Other disorders of plasma-protein metabolism, not elsewhere classified; E66.3 Overweight; E78.5 Hyperlipidemia, unspecified; K22.2 Esophageal obstruction; K57.90 Diverticulosis of intestine, part unspecified, without perforation or abscess without bleeding; Z98.890 Other specified postprocedural states; Z88.1 Allergy status to other antibiotic agents; Z88.2 Allergy status to sulfonamides; Z88.8 Allergy status to other drugs, medicaments and biological substances; Z79.01 Long term (current) use of anticoagulants; Z79.899 Other long term (current) drug therapy; Z95.0 Presence of cardiac pacemaker; Z90.89 Acquired absence of other organs; Z98.51 Tubal ligation status; Z90.49 Acquired absence of other specified parts of digestive tract; Z68.28 Body mass index [BMI] 28.0-28.9, adult
CPT/HCPCS: 36415; 80048; 80053; 81003; 82607; 82746; 83735; 85025; 97110-GO; 97110-GP; 97116-GP; 97161-GP; 97165-GO; 97530-GO; 97530-GP; 99306; 99309; 99316; A9270-GY; J2405; J7512

== ENCOUNTER 2025-07-20 05:46 | Day surgery (SDC) | payer MEDICARE, MEDICAID ==
[2025-07-20] MEDS ORDERED: Midazolam 1 MG/ML 2 ML SDV IV ONE (05:47)
[2025-07-20] MEDS ORDERED: Dexamethasone 4 MG/ML SDV IV ONE (05:47)
[2025-07-20] MEDS ORDERED: Sodium Chloride 0.9% 10 ML Syringe IV ONE (05:47)
[2025-07-20] MEDS ORDERED: Dexamethasone 4 MG/ML SDV ONE (06:12)
[2025-07-20] MEDS ORDERED: Ondansetron 4 MG/2 ML SDV IVPUSH PRN (06:30)
[2025-07-20] MEDS: Povidone-Iodine 5% Sterile Ophth Soln 30 ML Bottle EYELF ONE ×2 (07:02→07:42)
[2025-07-20] MEDS: Moxifloxacin 0.5% Ophth Soln 3 ML Bottle EYELF ONE (07:07)
[2025-07-20] MEDS: Phenylephrine 10% Ophth Soln 5 ML Bot EYELF ONE (07:09)
[2025-07-20] MEDS: Timolol Maleate 0.5% Ophth Soln 5 ML Bottle EYELF ONE (07:10)
[2025-07-20] MEDS: Cataract Ophth Solution EYELF ONE (07:11)
[2025-07-20] MEDS: Apraclonidine 0.5% Ophth Soln 5 ML Bot EYELF ONE (07:48)
[2025-07-20] MEDS: Diclofenac Sodium 0.1% Ophth Soln 5 ML Bottle EYELF ONE (07:49)
[2025-07-20] MEDS: Dexamethasone/Neomycin/Polymyxin B Ophth Oint 3.5 GM Tube EYELF ONE (07:49)
[2025-07-20 08:23] VITALS: BP 106/62; PULSE 78
== END 2025-07-20 08:40 | disposition home or self-care (01) ==
LOC: DL.SDS 05:46
PROVIDERS: ATTEND Ophthalmology
DX: H25.813 Combined forms of age-related cataract, bilateral (principal); I11.0 Hypertensive heart disease with heart failure; N18.9 Chronic kidney disease, unspecified; E66.9 Obesity, unspecified; I48.0 Paroxysmal atrial fibrillation; Z68.30 Body mass index [BMI] 30.0-30.9, adult; Z88.8 Allergy status to other drugs, medicaments and biological substances; Z88.2 Allergy status to sulfonamides; Z79.01 Long term (current) use of anticoagulants; Z91.09 Other allergy status, other than to drugs and biological substances; Z79.899 Other long term (current) drug therapy
CPT/HCPCS: 66984; A9270; J2003; J3373; 00142; 99100; J1100; J2250; J3490; V2632

== ENCOUNTER 2025-08-03 06:03 | Day surgery (SDC) | payer MEDICARE, MEDICAID ==
[2025-08-03] MEDS ORDERED: Ondansetron 4 MG/2 ML SDV IVPUSH PRN (06:30)
[2025-08-03] MEDS: Moxifloxacin 0.5% Ophth Soln 3 ML Bottle EYERT ONE (07:04)
[2025-08-03] MEDS: Povidone-Iodine 5% Sterile Ophth Soln 30 ML Bottle EYERT ONE ×2 (07:04→07:41)
[2025-08-03] MEDS: Timolol Maleate 0.5% Ophth Soln 5 ML Bottle EYERT ONE (07:06)
[2025-08-03] MEDS: Phenylephrine 10% Ophth Soln 5 ML Bot EYERT ONE (07:06)
[2025-08-03] MEDS: Cataract Ophth Solution EYERT ONE (07:07)
[2025-08-03] MEDS: Dexamethasone/Tobramycin 0.1-0.3% Ophth Oint 3.5 GM Tube EYERT ONE (07:49)
[2025-08-03] MEDS: Diclofenac Sodium 0.1% Ophth Soln 5 ML Bottle EYERT ONE (07:49)
[2025-08-03] MEDS: Apraclonidine 0.5% Ophth Soln 5 ML Bot EYERT ONE (07:49)
[2025-08-03 08:12] VITALS: BP 134/93; PULSE 57
== END 2025-08-03 09:13 | disposition home or self-care (01) ==
LOC: DL.SDS 06:03
PROVIDERS: ATTEND Ophthalmology
DX: H25.811 Combined forms of age-related cataract, right eye (principal); I10 Essential (primary) hypertension; E66.9 Obesity, unspecified; I48.0 Paroxysmal atrial fibrillation; E03.9 Hypothyroidism, unspecified; Z88.8 Allergy status to other drugs, medicaments and biological substances; Z88.2 Allergy status to sulfonamides; Z79.01 Long term (current) use of anticoagulants; Z91.09 Other allergy status, other than to drugs and biological substances; Z79.899 Other long term (current) drug therapy
CPT/HCPCS: 66984; A9270; J2003; J3373; J3490